=== PATIENT | female | born 1950 | race Hispanic/Latino ===

== ENCOUNTER → 2018-04-08 | Outpatient (CLI) | payer MEDICARE ==
[~2018-04-08] VITALS: Ht 152.4 cm; Wt 89.8 kg
[~2018-04-08] MED LIST: REGADENOSON 0.4 MG/5 ML PF SYG IVP SCH
== END | disposition home or self-care (01) ==
LOC: SHCH 08:32
PROVIDERS: ATTEND Internal Medicine Cardiovascular Disease
DX: I20.9 Angina pectoris, unspecified (principal)
CPT/HCPCS: 78452; 93017; 96374; A9500 ×2; J2785

== ENCOUNTER → 2018-04-13 | Outpatient (CLI) | payer MEDICARE | END | disposition home or self-care (01) | LOC: SHCH 08:04 | PROVIDERS: ATTEND Internal Medicine Cardiovascular Disease | DX: I51.7 Cardiomegaly (principal); R06.09 Other forms of dyspnea | CPT/HCPCS: 93306 ==

== ENCOUNTER → 2019-07-20 | Outpatient (CLI) | payer MEDICARE ==
[~2019-07-20] VITALS: Ht 152.4 cm; Wt 89.8 kg
== END | disposition home or self-care (01) ==
LOC: SHCH 08:14
PROVIDERS: ATTEND Internal Medicine Cardiovascular Disease
DX: R07.9 Chest pain, unspecified (principal); R06.09 Other forms of dyspnea
CPT/HCPCS: 78452; 93017; 96374; A9500 ×2; J2785

== ENCOUNTER → 2020-10-14 | Outpatient (CLI) | payer MEDICARE | END | disposition home or self-care (01) | LOC: RAH 10:31 | PROVIDERS: ATTEND Internal Medicine Gastroenterology | DX: K30 Functional dyspepsia (principal); R68.81 Early satiety | CPT/HCPCS: 78264; A9541 ==

== ENCOUNTER → 2022-08-31 | Outpatient (CLI) | payer OTHER | END | disposition home or self-care (01) | LOC: SHCH 07:47 | PROVIDERS: ATTEND Internal Medicine Cardiovascular Disease | DX: I51.7 Cardiomegaly (principal); I87.2 Venous insufficiency (chronic) (peripheral) | CPT/HCPCS: 93306 ==

== ENCOUNTER → 2022-09-10 | Outpatient (CLI) | payer OTHER | END | disposition home or self-care (01) | LOC: SHCH 14:26 | PROVIDERS: ATTEND Internal Medicine Cardiovascular Disease | DX: I87.2 Venous insufficiency (chronic) (peripheral) (principal); R00.2 Palpitations; I11.9 Hypertensive heart disease without heart failure; E11.9 Type 2 diabetes mellitus without complications; E78.49 Other hyperlipidemia; E66.9 Obesity, unspecified; Z68.36 Body mass index [BMI] 36.0-36.9, adult | CPT/HCPCS: 93970 ==

== ENCOUNTER → 2022-10-30 | Outpatient (CLI) | payer OTHER ==
[~2022-10-30] MED LIST changes: +REGADENOSON 0.4 MG/5 ML PF SYG IVP ONE; -REGADENOSON 0.4 MG/5 ML PF SYG IVP SCH
== END | disposition home or self-care (01) ==
LOC: SHCH 08:12
PROVIDERS: ATTEND Internal Medicine Cardiovascular Disease
DX: I25.110 Atherosclerotic heart disease of native coronary artery with unstable angina pectoris (principal); I44.7 Left bundle-branch block, unspecified
CPT/HCPCS: 78452; 96374; 93017; J2785; A9500 ×2

== ENCOUNTER 2023-08-02 07:05 | Day surgery (SDC) | payer OTHER ==
[2023-07-30 13:16] LABS: BASOPHILS # (AUTO) 0.05 K/uL (0.00-0.20); BASOPHILS % (AUTO) 0.5 % (0.0-5.0); EOSINOPHILS # (AUTO) 0.21 K/uL (0.00-0.70); HEMATOCRIT 29.5 % (36-48); IMMATURE GRANULOCYTE ABSOLUTE 0.02 K/uL (0-1); LYMPHOCYTES # (AUTO) 2.9 K/uL (1.0-4.8); LYMPHOCYTES % (AUTO) 27.7 % (21.0-51.0); MEAN CORPUSCULAR HEMOGLOBIN 28.9 pg (27.0-33.0); MEAN CORPUSCULAR HGB CONC 34.2 g/dL (32.0-36.0); MEAN CORPUSCULAR VOLUME 84.3 fL (79-99); MONOCYTES # (AUTO) 0.5 K/uL (0.1-1.0); MONOCYTES % (AUTO) 4.6 % (3.0-13.0); NEUTROPHILS # (AUTO) 6.8 K/uL (1.8-7.7); PLATELET COUNT (AUTO) 372 K/uL (130-400); RED CELL DISTRIBUTION WIDTH 13.2 % (11.0-15.5); WHITE BLOOD COUNT (AUTO) 10.5 K/uL (4.8-10.8)
[2023-07-30 13:33] LABS: INR 0.94 (0.85-1.15)
[2023-07-30 13:35] LABS: PARTIAL THROMBOPLASTIN TIME 32.7 SEC (26.3-35.5)
[2023-07-30 13:36] LABS: CREATININE 0.8 mg/dL (0.5-1.5); POTASSIUM 4.3 mmol/L (3.5-5.1)
[2023-07-30 13:43] VITALS: BP 140/80; PULSE 81; RESP 15
[2023-07-30 13:43] LABS: ADD UA MICROSCOPIC YES; APPEARANCE,URINE CLOUDY (CLEAR); BACTERIA,URINE MOD /HPF (None Seen); BILIRUBIN,URINE NEGATIVE (NEGATIVE); COLOR,URINE LIGHT-YELLOW (YELLOW); GLUCOSE, URINE (UA) 50 mg/dL (NEGATIVE); KETONES,URINE NEGATIVE (NEGATIVE); LEUKOCYTE ESTERASE ,URINE 500 Leu/uL (NEGATIVE); NITRATE,URINE NEGATIVE (NEGATIVE); NON-SQUAMOUS EPITHELIAL CELL 9 /HPF (0-2); OCCULT BLOOD,URINE SMALL (NEGATIVE); PH,URINE 6.5 (5.0-8.0); PROTEIN,URINE 20 mg/dL (NEGATIVE); RBC,URINE 26-50 /HPF (0-1); SQUAMOUS EPITHELIAL CELL,UR MOD /HPF (0-2); UNCLASSIFIED CRYSTAL 3 /HPF (None Seen); UROBILINOGEN,URINE 0.2 mg/dL (0.2-1.0); WBC CLUMP MANY /HPF (0-1); WBC,URINE TNTC /HPF (0-1); YEAST,URINE BUDDING FEW /HPF (None Seen)
[2023-07-30 13:51] LABS: B-TYPE NATRIURETIC PEPTIDE 80 pg/mL (0-100)
[2023-08-02] VITALS (9 sets, daily range): BP systolic 119–147; BP diastolic 42–52; PULSE 72–80; RESP 13–18
[~2023-08-02] VITALS: Ht 152.4 cm; Wt 87.8 kg
[~2023-08-02 07:05] MED LIST changes: +CLON0.1T PO; +HYDR50TA37 PO; +INSULIN PUMP SQ; +LEVO88TA4 PO; -REGADENOSON 0.4 MG/5 ML PF SYG IVP ONE; +ROSU10TA28 PO; +SEMA0.258 SQ; +VALS1TAB81 PO
[2023-08-02] MEDS: 0.9%NACL 1000ML 1,000 ML IV ONE (08:11)
[2023-08-02] MEDS ORDERED: VALS320T16 PO (08:15)
[2023-08-02] MEDS ORDERED: LIDOCAINE HCL 400MG/20ML VIAL ONE (09:27)
[2023-08-02] MEDS ORDERED: IOHEXOL 350 MG/ML 100ML INFUS..BTL IV ONE (09:27)
[2023-08-02] MEDS ORDERED: HEPARIN 10,000 UNIT/10ML (1,000 UNIT/ML) VIAL ONE (09:27)
[2023-08-02] MEDS ORDERED: NITROGLYCERIN 50MG VIAL ONE (09:27)
[2023-08-02] MEDS ORDERED: FENTANYL CITRATE PF 50 MCG/1 ML 2ML VIAL ONE (09:31)
[2023-08-02] MEDS ORDERED: MIDAZOLAM HCL 1 MG/ML 2ML VIAL ONE (09:31)
[2023-08-02] MEDS ORDERED: IOHEXOL-350 50ML VIAL IV ONE (09:51)
[2023-08-02] MEDS ORDERED: LABETALOL 20MG SYG IV ONE (09:59)
[2023-08-02] MEDS ORDERED: 0.9%NACL 1000ML 1,000 ML IV SCH (10:30)
[2023-08-02] MEDS ORDERED: DEXTROSE 50%-WATER 50 ML DISP.SYRIN IV PRN (10:30)
[2023-08-02] MEDS ORDERED: GLUCAGON 1MG KIT 1 MG ML IM PRN (10:30)
[2023-08-02] MEDS ORDERED: HYDRALAZINE 20MG/ML VIAL IV PRN (10:30)
[2023-08-02] MEDS ORDERED: INSULIN HUMULIN R 100 UNIT/ML 3ML SQ SCH (11:30)
== END 2023-08-02 14:36 | disposition home or self-care (01) ==
LOC: DAH 07:05
PROVIDERS: ATTEND Internal Medicine Cardiovascular Disease
DX: I25.110 Atherosclerotic heart disease of native coronary artery with unstable angina pectoris (principal); I11.0 Hypertensive heart disease with heart failure; I50.32 Chronic diastolic (congestive) heart failure; I44.7 Left bundle-branch block, unspecified; E11.9 Type 2 diabetes mellitus without complications; I48.0 Paroxysmal atrial fibrillation; E66.01 Morbid (severe) obesity due to excess calories; E03.9 Hypothyroidism, unspecified; E78.49 Other hyperlipidemia; I87.2 Venous insufficiency (chronic) (peripheral); Z79.01 Long term (current) use of anticoagulants; Z79.899 Other long term (current) drug therapy; Z68.36 Body mass index [BMI] 36.0-36.9, adult; Z90.710 Acquired absence of both cervix and uterus; Z98.890 Other specified postprocedural states; Z82.49 Family history of ischemic heart disease and other diseases of the circulatory system; Z83.3 Family history of diabetes mellitus
CPT/HCPCS: 80048; 83880; 85025; 85610; 85730; 87077; 87088; 87186; 81001; 36415; 71045; 93005; 93458; 82948 ×2; C1894 ×2; C1760 ×2; J3010; J3490 ×2; J7030; J2250; J1644; Q9967 ×2; A4215; A4222; A4221; A4663; A4216; A4606; Q9965; A4223 ×3; 96360; 96361; 99156; 99157

== ENCOUNTER → 2023-09-16 | Outpatient (CLI) | payer OTHER ==
[~2023-09-16] MED LIST changes: -VALS1TAB81 PO; +VALS320T16 PO
== END | disposition home or self-care (01) ==
LOC: SHCH 14:48
PROVIDERS: ATTEND Internal Medicine Cardiovascular Disease
DX: I65.23 Occlusion and stenosis of bilateral carotid arteries (principal)
CPT/HCPCS: 93880